=== PATIENT | female | born 1980 | race American Indian/Alaskan Native ===

== ENCOUNTER 2021-10-31 12:05 | Emergency (ER) | payer OTHER ==
[2021-10-31] MEDS ORDERED: MORPHINE 4 MG/1 ML INJ IV ONE (12:39)
[2021-10-31] MEDS ORDERED: ONDANSETRON 4 MG/2 ML INJ IV ONE (12:39)
[2021-10-31] MEDS ORDERED: hydrALAZINE 20 MG/1 ML INJ IV ONE (12:40)
--- NOTE | 2021-10-31 12:49 | Emergency Department Report ---
ED General Adult HPI - General Chief complaint: Headache Stated complaint: HEADACHE Time Seen by Provider: 10/31/21 12:37 Source: EMS Mode of arrival: Stretcher Limitations: No Limitations - History of Present Illness Initial comments: Patient is 41 years old female with history of hypertension, noncompliant with her medication. Patient presented to the ER via EMS from a local urgent care for evaluation of a headache that started yesterday. Patient describes her headache as global. She denies any focal weakness numbness or tingling sensation. She also denied any neck pain, bowel or bladder incontinence. No fever or chills. Patient found to have a blood pressure of 240/119. Severity scale (0 -10): 10 - Related Data Allergies Allergy/AdvReac Type Severity Reaction Status Date / Time No Known Allergies Allergy Unverified 10/31/21 12:21 ED Review of Systems ROS: Stated complaint: HEADACHE Other details as noted in HPI Comment: All other systems reviewed and negative Constitutional: denies: chills, fever Respiratory: denies: cough, shortness of breath, SOB with exertion Cardiovascular: denies: chest pain, palpitations Gastrointestinal: denies: abdominal pain, nausea, vomiting, diarrhea, constipa tion, hematemesis, melena, hematochezia Musculoskeletal: denies: back pain Neurological: headache. denies: weakness, numbness, paresthesias, confusion, abnormal gait ED Past Medical Hx - Past Medical History Previous Medical History?: Yes Hx Hypertension: Yes - Social History Smoking Status: Never Smoker Substance Use Type: None ED Physical Exam - General Limitations: No Limitations General appearance: alert, in no apparent distress - Head Head exam: Present: atraumatic, normocephalic, normal inspection - Eye Eye exam: Present: normal appearance - ENT ENT exam: Present: normal exam, normal orophraynx, mucous membranes moist - Neck Neck exam: Present: normal inspection, full ROM. Absent: tenderness, meningismus - Respiratory Respiratory exam: Present: normal lung sounds bilaterally - Cardiovascular Cardiovascular Exam: Present: regular rate, normal rhythm, normal heart sounds - GI/Abdominal GI/Abdominal exam: Present: soft, normal bowel sounds. Absent: distended, tenderness, guarding, rebound, rigid, organomegaly, mass, bruit, pulsatile mass, hernia - Extremities Exam Extremities exam: Present: normal inspection, full ROM, normal capillary refill. Absent: tenderness, pedal edema, joint swelling, calf tenderness - Back Exam Back exam: Present: normal inspection, full ROM. Absent: CVA tenderness (R), CVA tenderness (L) - Neurological Exam Neurological exam: Present: alert, oriented X3, CN II-XII intact, normal gait, reflexes normal. Absent: motor sensory deficit - Psychiatric Psychiatric exam: Present: normal mood - Skin Skin exam: Present: warm, intact, normal color ED Course Vital Signs 10/31/21 10/31/21 10/31/21 12:21 12:28 12:30 Temperature Pulse Rate 70 86 Respiratory 18 16 17 Rate Blood Pressure Blood Pressure 180/117 [Right] O2 Sat by Pulse 99 Oximetry 10/31/21 10/31/21 10/31/21 12:35 12:38 12:46 Temperature 98.2 F Pulse Rate 75 82 Respiratory 17 17 14 Rate Blood Pressure 175/118 Blood Pressure 175/118 [Right] O2 Sat by Pulse 96 96 98 Oximetry 10/31/21 10/31/21 10/31/21 12:52 13:00 13:16 Temperature Pulse Rate 83 82 87 Respiratory 15 15 Rate Blood Pressure 172/112 172/112 166/103 Blood Pressure [Right] O2 Sat by Pulse 99 98 Oximetry 10/31/21 10/31/21 13:30 13:46 Temperature Pulse Rate 77 80 Respiratory 17 16 Rate Blood Pressure 150/90 137/85 Blood Pressure [Right] O2 Sat by Pulse 98 99 Oximetry ED Medical Decision Making - Lab Data Result diagrams: 10/31/21 13:04 10/31/21 13:04 - EKG Data -: EKG Interpreted by Tx EKG shows normal: sinus rhythm Rate: normal - EKG Data Interpretation: no acute changes - Radiology Data Radiology results: report reviewed - Medical Decision Making Patient is 41 years old female with history of hypertension, noncompliant with her medication. Patient presented to the ER via EMS from a local urgent care for evaluation of a headache that started yesterday. Patient describes her head ache as global. She denies any focal weakness numbness or tingling sensation. She also denied any neck pain, bowel or bladder incontinence. No fever or chills. Patient found to have a blood pressure of 240/119. Patient received hydralazine, morphine and Zofran. Patient stated that headache is completely resolved. Labs reviewed and is unremarkable. CT brain is negative for acute finding. I believe patient symptoms most likely related to malignant hypertension. Patient counseled about compliant with antihypertensive medication. I prescribed patient Norvasc and hydrochlorothiazide and advised her to follow-up with her primary care physician in the next 2 to 3 days and to return to the ER if she develop any new symptoms. Critical care attestation.: If time is entered above; I have spent that time in minutes in the direct care of this critically ill patient, excluding procedure time. ED Disposition Clinical Impression: Acute headache, Malignant hypertension Disposition: 01 HOME / SELF CARE / HOMELESS Is pt being admited?: No Condition: Stable Instructions: Hypertension (ED), Managing Your Hypertension, General Headache Without Cause, [id number] Referrals: PRIMARY CARE, [Referring] - 3-5 Days
[2021-10-31 13:53] LABS: Basophils # (Auto) 0.1 K/mm3 (0.0-0.1); Basophils % (Auto) 0.5 % (0.0-1.8); Eosinophils # (Auto) 0.1 K/mm3 (0.0-0.4); Eosinophils % (Auto) 0.6 % (0.0-4.3); Hemoglobin 14.2 gm/dl (10.1-14.3); Lymphocytes # (Auto) 2.7 K/mm3 (1.2-5.4); Lymphocytes % (Auto) 23.9 % (13.4-35.0); Mean Corpuscular HGB Conc 32 % (30-34); Mean Corpuscular Volume 84 fl (79-97); Monocytes # (Auto) 0.6 K/mm3 (0.0-0.8); Monocytes % (Auto) 5.1 % (0.0-7.3); Platelet Count 275 K/mm3 (140-440); Red Blood Count 5.23 M/mm3 (3.65-5.03)
[2021-10-31 14:10] LABS: Blood Urea Nitrogen 10 mg/dL (7-17); Calcium 9.3 mg/dL (8.4-10.2); Hemolysis Index 36
[2021-10-31 14:13] LABS: BUN/Creatinine Ratio 17
--- NOTE | 2021-10-31 14:31 | Cat Scan Report ---
CT HEAD WITHOUT CONTRAST INDICATION / CLINICAL INFORMATION: Headache. TECHNIQUE: All CT scans at this location are performed using CT dose reduction for ALARA by means of automated exposure control. COMPARISON: None available. FINDINGS: BRAIN PARENCHYMA: No acute intracranial hemorrhage. No evidence of recent infarct. No mass effect or midline shift. VENTRICULAR SYSTEM/EXTRA-AXIAL SPACES: Ventricles are normal for age. No extra-axial fluid collection . ORBITS: Normal as visualized. SKELETAL SYSTEM/SOFT TISSUES: Normal bones and soft tissues. PARANASAL SINUSES/MASTOID AIR CELLS: No significant abnormality. ADDITIONAL FINDINGS: None. IMPRESSION: 1. No acute intracranial abnormality. Signer Name: John Bejarano MD Signed: 10/31/2021 2:26 PM Workstation Name: [id number]
[2021-10-31] MEDS ORDERED: METOCLOPRAMIDE 10 MG/2 ML INJ IV ONE (14:43)
[2021-10-31 15:05] VITALS: BP 146/84
[2021-10-31] MEDS ORDERED: ONDANSETRON 4 MG ODT TAB PO ONE (15:06)
--- NOTE | 2021-11-02 18:49 | Electrocardiograph Report ---
[facility] Test Date: 2021-10-31 Test Time: 12:39:32 Pat Name: GERARDO AGUILAR Department: Room: Gender: F [employer] Operative: MABEL : 1980 Requested By: JUNIOR CASTILLO Order Number: [id number] Reading MD: Wil Jackson Measurements Intervals [place] Rate: 77 P: 32 [place]: 121 QRS: -2 QRSD: 95 T: 39 QT: 435 QTc: 491 Interpretive Statements Sinus rhythm Left ventricular hypertrophy No previous ECG available for comparison Electronically Signed On 11-02-2021 18:48:33 EDT by Wil Jackson
== END 2021-10-31 15:10 | disposition home or self-care (01) ==
LOC: ED 12:05
DX: R51.9 Headache, unspecified (principal); I10 Essential (primary) hypertension
CPT/HCPCS: 36415; 70450; 80048; 84703; 85025; 93005; 96374; 96375; 99284; J0360; J2270; J2405; J3490; Q0162